=== PATIENT | female | born 1970 | race Caucasian/White ===

== ENCOUNTER → 2018-01-19 | Outpatient (CLI) | payer BC ==
[2018-01-19 18:59] LABS: Basophils % (A) 1 %; Eosinophils % (A) 1 %; HCT 45.8 % (34.0-46.0); HGB 15.7 gm/dL (11.4-16.0); Lymphocytes # (A) 2.1 k/uL (1.0-4.8); Lymphocytes % (A) 30 %; MCH 29.8 pg (25.0-35.0); MCHC 34.2 g/dL (31.0-37.0); MCV 87.1 fL (80.0-100.0); Mean Platelet Volume 8.8; Monocytes # (A) 0.5 k/uL (0-1.0); Monocytes % (A) 7 %; Neutrophils # (A) 4.1 k/uL (1.3-7.7); Neutrophils % (A) 59 %; Platelet Count 184 k/uL (150-450); RBC 5.26 m/uL (3.80-5.40); RDW 11.9 % (11.5-15.5); WBC 6.8 k/uL (3.8-10.6)
[2018-01-19 19:15] LABS: ALT 75 U/L (9-52); AST 59 U/L (14-36); Albumin 4.4 g/dL (3.5-5.0); Alkaline Phosphatase 114 U/L (38-126); Anion Gap 18 mmol/L; Blood Urea Nitrogen 17 mg/dL (7-17); Calcium 9.9 mg/dL (8.4-10.2); Carbon Dioxide 18 mmol/L (22-30); Chloride 103 mmol/L (98-107); Cholesterol 171 mg/dL (<200); Glucose 159 mg/dL (74-99); HDL Cholesterol 36 mg/dL (40-60); Potassium 4.2 mmol/L (3.5-5.1); Sodium 139 mmol/L (137-145); Total Bilirubin 0.4 mg/dL (0.2-1.3); Total Protein 7.2 g/dL (6.3-8.2); Triglycerides 486 mg/dL (<150)
[2018-01-19 19:27] LABS: T4, Free (Free Thyroxine) 1.09 ng/dL (0.78-2.19)
[2018-01-20 01:38] LABS: Hemoglobin A1C 9.8 % (4.0-6.0)
== END | disposition home or self-care (01) ==
LOC: MMGSC 16:21
PROVIDERS: ATTEND Family Medicine
DX: I10 Essential (primary) hypertension (principal); E11.9 Type 2 diabetes mellitus without complications; E78.1 Pure hyperglyceridemia
CPT/HCPCS: 36415; 80053; 80061; 82043; 82570; 83036; 83721; 84439; 84443; 85025

== ENCOUNTER → 2018-01-20 | Outpatient (CLI) | payer BC ==
--- NOTE | 2018-01-20 08:31 | US ---
EXAMINATION TYPE: US venous doppler duplex LE RT DATE OF EXAM: 01/20/2018 8:03 AM COMPARISON: NONE CLINICAL HISTORY: Right Lower extremity swelling R22.41. SIDE PERFORMED: Right TECHNIQUE: The lower extremity deep venous system is examined utilizing real time linear array sonog phillip with graded compression, doppler sonography and color-flow sonography. VESSELS IMAGED: External Iliac Vein (EIV) Common Femoral Vein Deep Femoral Vein Greater Saphenous Vein * Femoral Vein Popliteal Vein Small Saphenous Vein * Proximal Calf Veins (* superficial vessels) Grayscale, color doppler, spectral doppler imaging performed of the deep veins of the right lower ext remity. There is normal flow, compressibility, vascular waveforms. Right Leg: Negative for DVT IMPRESSION: No sonographic evidence of deep venous arthrosis within the right lower extremity.
== END | disposition home or self-care (01) ==
LOC: RADUSWWP 07:35
PROVIDERS: ATTEND Family Medicine
DX: R22.41 Localized swelling, mass and lump, right lower limb (principal)

== ENCOUNTER → 2019-07-19 | Outpatient (CLI) | payer BC ==
--- NOTE | 2019-07-19 16:24 | XR ---
EXAMINATION TYPE: XR elbow limited RT DATE OF EXAM: 07/19/2019 COMPARISON: None HISTORY: Right elbow pain and stiffness TECHNIQUE: 2 view right elbow FINDINGS: Radius aligns normally with the humerus. There is some spurring at the radial head. This co uld be related to degenerative change or old fracture. No elevation of the anterior fat pad is eviden t. No suspicious elevation of posterior fat pad is evident. Mild olecranon spurring is present. IMPRESSION: 1. No suspicious acute changes. 2. Some degenerative osseous changes may be present.
== END | disposition home or self-care (01) ==
LOC: RADXRMAIN 08:28
PROVIDERS: ATTEND Orthopaedic Surgery
DX: M25.521 Pain in right elbow (principal)

== ENCOUNTER → 2020-06-18 | Outpatient (CLI) | payer BC | END | disposition home or self-care (01) | LOC: LABWHC1 13:21 | PROVIDERS: ATTEND Family Medicine | DX: Z03.818 Encounter for observation for suspected exposure to other biological agents ruled out (principal) | CPT/HCPCS: U0003; C9803 ==